=== PATIENT | male | born 2000 | race African-American/Black ===

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

== ENCOUNTER 2018-08-30 23:10 | Emergency (ER) | payer SELFPAY ==
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
== END 2018-08-31 00:55 | disposition home or self-care (01) ==
LOC: FB.ED 23:10
DX: I42.2 Other hypertrophic cardiomyopathy (principal); Z98.890 Other specified postprocedural states
CPT/HCPCS: 36415; 80053; 80305-QW; 84484; 85025; 85379; 93005; 99284